=== PATIENT | male | born 1990 | race Caucasian/White ===

== ENCOUNTER 2024-11-28 16:00 | Emergency (ER) | payer SELFPAY ==
--- NOTE | 2024-11-28 16:09 | PC.NURSE ---
Addendum entered by Caron Jamison R.N. 11/28/24 16:30: Patient not present at 1630. Original Note: Called for triage at 1608, not present
== END 2024-11-28 16:30 | disposition left against medical advice (07) ==
PROVIDERS: Emergency Provider Emergency Medicine
DX: R00.8 Other abnormalities of heart beat (principal)